=== PATIENT | female | born 1950 | race Caucasian/White ===

== ENCOUNTER 2017-09-04 11:50 | Outpatient (CLI) | payer MEDICARE | END 2017-09-04 11:51 | disposition home or self-care (01) | LOC: BICRAD 11:50 | PROVIDERS: ATTEND Physician Assistant | DX: S89.91XA Unspecified injury of right lower leg, initial encounter (principal) ==

== ENCOUNTER 2017-12-13 14:00 | Outpatient (CLI) | payer MEDICARE ==
--- NOTE | 2017-12-17 11:22 | MMO ---
BILATERAL DIGITAL SCREENING MAMMOGRAMS: Date: 12/13/17 This patient's mammogram was interpreted with the assistance of computer-aided detection. Comparison made with exams of 10/13/16, 09/09/15, and 08/13/14. FINDINGS: There are scattered fibroglandular densities. No suspicious masses, calcifications, or architectural distortion seen. IMPRESSION: BIRADS 1: Negative Return to annual mammographic screening. POS: [id number]
== END 2017-12-13 14:01 | disposition home or self-care (01) ==
LOC: SCSMAMMO 14:00
PROVIDERS: ATTEND Obstetrics & Gynecology
DX: Z12.31 Encounter for screening mammogram for malignant neoplasm of breast (principal)
CPT/HCPCS: 77067

== ENCOUNTER 2019-02-25 10:41 | Outpatient (CLI) | payer MEDICARE ==
--- NOTE | 2019-02-25 13:39 | MMO ---
Bilateral MAMMO Bilat Screen [facility]. CLINICAL HISTORY: Patient is 68 years old and is seen for screening. The patient has no family history of breast cancer. The patient has no personal history of cancer. VIEWS: The views performed were: bilateral craniocaudal with tomosynthesis and bilateral mediolateral oblique with tomosynthesis. FILMS COMPARED: The present examination has been compared to prior imaging studies performed at [facility] on 07/08/2013, 08/13/2014, 09/09/2015 and 10/13/2016. MAMMOGRAM FINDINGS: There are scattered fibroglandular densities. There are no suspicious masses, suspicious calcifications, or new areas of architectural distortion. IMPRESSION: THERE IS NO MAMMOGRAPHIC EVIDENCE OF MALIGNANCY. A ROUTINE FOLLOW-UP MAMMOGRAM IN 1 YEAR IS RECOMMENDED. THE RESULTS OF THIS EXAM WERE SENT TO THE PATIENT. ACR BI-RADS Category 1 - Negative MAMMOGRAPHY NOTE: 1. A negative mammogram report should not delay a biopsy if a dominant of clinically suspicious mass is present. 2. Approximately 10% to 15% of breast cancers are not detected by mammography. 3. Adenosis and dense breasts may obscure an underlying neoplasm. Reported by: GREG SHAW MD Electonically Signed: [id number]
== END 2019-02-25 10:42 | disposition home or self-care (01) ==
LOC: BICMAMMO 10:41
PROVIDERS: ATTEND Obstetrics & Gynecology
DX: Z12.31 Encounter for screening mammogram for malignant neoplasm of breast (principal)
CPT/HCPCS: 77063; 77067

== ENCOUNTER 2020-03-18 15:20 | Outpatient (CLI) | payer MEDICARE ==
--- NOTE | 2020-03-18 15:53 | MMO ---
Bilateral MAMMO Bilat Screen [facility]. CLINICAL HISTORY: Patient is 69 years old and is seen for screening. The patient has no family history of breast cancer. The patient has no personal history of cancer. VIEWS: The views performed were: bilateral craniocaudal with tomosynthesis and bilateral mediolateral oblique with tomosynthesis. FILMS COMPARED: The present examination has been compared to prior imaging studies performed at [facility] on 08/13/2014, 09/09/2015, 10/13/2016 and 02/25/2019. This study has been interpreted with the assistance of computer-aided detection. MAMMOGRAM FINDINGS: There are scattered fibroglandular densities. There are no suspicious masses, suspicious calcifications, or new areas of architectural distortion. IMPRESSION: THERE IS NO MAMMOGRAPHIC EVIDENCE OF MALIGNANCY. A ROUTINE FOLLOW-UP MAMMOGRAM IN 1 YEAR IS RECOMMENDED. THE RESULTS OF THIS EXAM WERE SENT TO THE PATIENT. ACR BI-RADS Category 1 - Negative MAMMOGRAPHY NOTE: 1. A negative mammogram report should not delay a biopsy if a dominant of clinically suspicious mass is present. 2. Approximately 10% to 15% of breast cancers are not detected by mammography. 3. Adenosis and dense breasts may obscure an underlying neoplasm. Reported by: DEBRA YEUNG MD Electonically Signed: [id number]
== END 2020-03-18 15:21 | disposition home or self-care (01) ==
LOC: BICMAMMO 15:20
PROVIDERS: ATTEND Obstetrics & Gynecology
DX: Z12.31 Encounter for screening mammogram for malignant neoplasm of breast (principal)
CPT/HCPCS: 77063; 77067

== ENCOUNTER 2021-05-17 15:07 | Outpatient (CLI) | payer MEDICARE | END 2021-05-17 15:08 | disposition home or self-care (01) | LOC: BICMAMMO 15:07 | PROVIDERS: ATTEND Obstetrics & Gynecology | DX: Z12.31 Encounter for screening mammogram for malignant neoplasm of breast (principal) | CPT/HCPCS: 77063; 77067 ==

== ENCOUNTER 2021-06-27 13:24 | Outpatient (CLI) | payer MEDICARE | END 2021-06-27 13:25 | disposition home or self-care (01) | LOC: BICMAMMO 13:24 | PROVIDERS: ATTEND Obstetrics & Gynecology | DX: Z13.820 Encounter for screening for osteoporosis (principal); M85.851 Other specified disorders of bone density and structure, right thigh; M85.852 Other specified disorders of bone density and structure, left thigh | CPT/HCPCS: 77080 ==

== ENCOUNTER 2022-06-20 13:01 | Outpatient (CLI) | payer MEDICARE | END 2022-06-20 13:02 | disposition home or self-care (01) | LOC: BICMAMMO 13:01 | PROVIDERS: ATTEND Obstetrics & Gynecology | DX: Z12.31 Encounter for screening mammogram for malignant neoplasm of breast (principal) | CPT/HCPCS: 77063; 77067 ==

== ENCOUNTER 2022-09-17 17:05 | Emergency (ER) | payer MEDICARE ==
[~2022-09-17 17:05] MED LIST: Iopamidol-370 76% 500 ML MDV (1 ML CHARGE) ONE
[2022-09-17] MEDS ORDERED: Ketorolac Tromethamine 30 MG/ML VIAL ONE (17:43)
[2022-09-17] MEDS ORDERED: Morphine 4 MG/ML VIAL ONE (17:52)
[2022-09-17 18:20] LABS: #Basophils 0.1 thou/uL (0.0-0.2); #Eosinphils 0.1 thou/uL (0.0-0.7); #Lymphocytes 1.3 thou/uL (1.20-3.40); %Basophils 0.6 % (0.0-1.0); %Eosinophils 1.1 % (0.0-10.0); %Lymphocytes 12.7 % (21.0-51.0); %Monocytes 9.2 % (0.0-10.0); %Neutrophils 76.4 % (42.0-75.0); Hemoglobin 13.4 g/dL (12.0-16.0); Mean Corpuscular HGB CONC 33.7 g/dL (32.0-36.0); Mean Corpuscular Hemoglobin 31.4 pg (27.0-31.0); Mean Corpuscular Volume 93.2 fl (78.0-98.0); Mean Platelet Volume 7.9 fL (7.4-10.4); Platelet Count 257 10x3/uL (130-400); RBC Distribution Width 13.1 % (11.5-14.5); Red Blood Cell (RBC) Count 4.26 mill/uL (4.20-5.40); White Blood Cell (WBC) Count 10.4 10x3/uL (4.8-10.8)
[2022-09-17 18:36] LABS: ALT (SGPT) 18 U/L (8-55); AST (SGOT) 20 U/L (5-34); Albumin 4.3 g/dL (3.4-4.8); Alkaline Phosphatase 54 U/L (40-110); Anion Gap 11 mmol/L (10-20); BUN (Urea Nitrogen) 11 mg/dL (9.8-20.1); Bilirubin, Total 0.3 mg/dL (0.2-1.2); Calc. Creatinine Clearance 0 mL/min (70-130); Carbon Dioxide 27 mmol/L (23-31); Chloride 97 mmol/L (98-107); Estimated GFR 77; Glucose 125 mg/dL (83-110); Potassium 3.6 mmol/L (3.5-5.1); Protein, Total 7.3 g/dL (5.8-8.1); Sodium 131 mmol/L (136-145)
[2022-09-17] MEDS ORDERED: Proparacaine 0.5% Opth 15 ML BOT ONE (20:52)
[2022-09-17] MEDS ORDERED: Fluorescein Opthalmic Strip ONE (20:52)
== END 2022-09-17 20:41 | disposition home or self-care (01) ==
LOC: ERS 17:05
DX: S22.42XA Multiple fractures of ribs, left side, initial encounter for closed fracture (principal); S70.02XA Contusion of left hip, initial encounter; W10.8XXA Fall (on) (from) other stairs and steps, initial encounter
CPT/HCPCS: 71260; 74177; 80053; 85025; 96374; 96375; J1885; J2270; Q9967

== ENCOUNTER 2025-06-09 14:14 | Outpatient (CLI) | payer MEDICARE | END 2025-06-09 14:15 | disposition home or self-care (01) | LOC: ULT 14:14 | PROVIDERS: ATTEND Surgery | DX: M71.379 Other bursal cyst, unspecified ankle and foot (principal) | CPT/HCPCS: 76882 ==